=== PATIENT | female | born 1970 | race Two or more races ===

== ENCOUNTER 2018-09-09 11:07 | Day surgery (SDC) | payer OTHER ==
[2018-09-09] VITALS (13 sets, daily range): BP systolic 109–129; BP diastolic 68–83; PULSE 83–100; RESP 11–21; Ht 167.6 cm; Wt 71.9 kg
[~2018-09-09] VITALS: Ht 167.6 cm; Wt 71.9 kg
[~2018-09-09 11:07] MED LIST: SEVOFLURANE 15 MIN ONE
[2018-09-09] MEDS ORDERED: HYDR-4011 PO (11:40)
[2018-09-09] MEDS ORDERED: IBUP-1542 PO (11:41)
[2018-09-09] MEDS ORDERED: LACTATED RINGER'S 1,000 ML IV SCH (12:00)
--- NOTE | 2018-09-09 13:04 | HPN ---
Date/Time of Note Date/Time of Note DATE: 09/09/18 TIME: 13:03 Interval H&P Admission Note Pt. seen H&P reviewed: No system changes ALBA JAY MD Sep 09, 2018 13:04
[2018-09-09] MEDS ORDERED: POLYMYXIN/BACITRACIN 1L IRRIG ONE (13:14)
--- NOTE | 2018-09-09 13:48 | PREAC ---
Date/Time of Note Date/Time of Note DATE: 09/09/18 TIME: 13:47 Anesthesia Eval and Record Evaluation Time Pre-Procedure Interview DATE: 09/09/18 TIME: 13:47 Age 47 Sex female NPO: 8 hrs Preoperative diagnosis Patellar fracture Planned procedure ORIF Past Medical History Past Medical History: None Surgery & Anesthesia Issues No known issue Meds Anticoagulation: No Beta Gigi within 24 hr: No Reason Beta Gigi not given: Pt. not on B-Gigi Reported Medications Ibuprofen* (Motrin*) 600 Mg Tab, 600 MG PO Q6H PRN for PAIN, TAB 09/09/18 Hydrocodone/Acetaminophen ([place] 5-325 Tablet) 1 Each Tablet, 1 EACH PO BID PRN for PAIN, TAB 09/09/18 Current Medications Lactated Ringer's 1,000 ml @ 30 mls/hr Q24H IV ; Start 09/09/18 at 12:00 Meds reviewed: Yes Allergies Coded Allergies: No Known Allergy (Unverified , 09/09/18) Allergies Reviewed: Yes Labs/Studies Labs Reviewed: Reviewed by anesthesiologist Result Diagram: 09/09/18 1155 09/09/18 1155 Laboratory Tests 09/09/18 11:55 test: Negative Pre-procedure Exam Last vitals Vital Signs Date Temp Pulse Resp B/P (MAP) Pulse Ox O2 O2 Flow FiO2 Time Delivery Rate 09/09/18 99.1 83 16 109/75 96 Room Air 11:32 (86) Airway: Adequate mouth opening Mallampati: Mallampati I Teeth: Normal Lung: Normal Heart: Normal ASA Physical Status ASA physical status: 1 Emergency: None Planned Anesthetic General/MAC: ETT, LMA Planned Pain Management Parenteral pain med Pre-operative Attestations Prior to commencing anesthesia and surgery, the patient was re-evaluated, there was verification of: *The patient's identity *The results of appropriate recent lab work and preoperative vital signs *The above evaluation not changing prior to induction *Anesthetic plan, risk benefits, alternative and complications discussed with patient/family; questions answered; patient/family understands, accepts and wishes to proceed. RAISA CHERRY MD Sep 09, 2018 13:48
[2018-09-09] MEDS ORDERED: METOCLOPRAMIDE 10 MG INJ ONE (14:00)
[2018-09-09] MEDS ORDERED: LIDOCAINE 2% (SDV) 5 ML INJ ONE (14:00)
[2018-09-09] MEDS ORDERED: CEFAZOLIN 1 GM INJ ONE ×2 (14:00→14:02)
[2018-09-09] MEDS ORDERED: ONDANSETRON 4 MG INJ ONE (14:00)
[2018-09-09] MEDS ORDERED: PROPOFOL 20 ML ONE (14:00)
[2018-09-09] MEDS ORDERED: MEPERIDINE 100 MG INJ ONE (14:00)
[2018-09-09] MEDS ORDERED: METOCLOPRAMIDE 10 MG INJ IV PRN (15:00)
[2018-09-09] MEDS ORDERED: ONDANSETRON 4 MG INJ IV PRN (15:00)
[2018-09-09] MEDS ORDERED: DIPHENHYDRAMINE 50 MG INJ IV PRN (15:00)
[2018-09-09] MEDS ORDERED: FENTAnyl 50 MCG/ML VIAL IV PRN ×3 (15:00)
[2018-09-09] MEDS ORDERED: MEPERIDINE 25 MG INJ IV PRN (15:00)
[2018-09-09] MEDS ORDERED: HYDROmorphONE 1 MG/5 ML IV SYRINGE IV PRN ×2 (15:00)
[2018-09-09] MEDS ORDERED: OXYCODONE/ACETAMINOPHEN (5/325) TAB PO PRN (15:00)
[2018-09-09] MEDS ORDERED: MIDAZOLAM 1 MG/ML 2 ML INJ IV PRN (15:00)
--- NOTE | 2018-09-09 15:09 | OPR ---
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
[2018-09-09] MEDS: HYDROmorphONE 1 MG/5 ML IV SYRINGE IV PRN ×3 (15:34→15:45)
[2018-09-09] MEDS: OXYCODONE/ACETAMINOPHEN (5/325) TAB PO PRN ×2 (15:55→16:47)
--- NOTE | 2018-09-09 15:59 | PAC ---
Date/Time of Note Date/Time of Note DATE: 09/09/18 TIME: 15:58 Post-Anesthesia Notes Post-Anesthesia Note Last documented vital signs Vital Signs Date Temp Pulse Resp B/P (MAP) Pulse Ox O2 O2 Flow FiO2 Time Delivery Rate 09/09/18 96 12 117/78 97 Nasal 2.0 15:39 (91) Cannula 09/09/18 98.9 15:17 Activity: WNL Respiratory function: WNL Cardiovascular function: WNL Mental status: Baseline Pain reasonably controlled: Yes Hydration appropriate: Yes Nausea/Vomiting absent: Yes RAISA CHERRY MD Sep 09, 2018 15:59
--- NOTE | 2018-09-09 22:14 | OPR ---
DATE OF OPERATION: 09/09/2018 SURGEON: Kayleigh Serna MD ANESTHESIA: General. PREOPERATIVE DIAGNOSIS: Displaced comminuted left patellar fracture. POSTOPERATIVE DIAGNOSIS: Displaced comminuted left patellar fracture. PROCEDURES PERFORMED: 1. Open reduction and internal fixation of left closed displaced patella fracture using two 4.5 mm c annulated screws 48 mm in length, and 18-gauge cerclage wire. 2. Repair of quadriceps tendon expansion medially and laterally with #2 FiberWire sutures. 3. Interpretation of intraoperative fluoroscopy x-ray. ESTIMATED BLOOD LOSS: 150 mL. TOURNIQUET TIME: 40 minutes. COMPLICATIONS: None. INDICATIONS: The patient approximately 1 week status post a fall injuring the left knee. X-rays rev eal a displaced comminuted fracture of the patella. Surgery has been recommended. The patient presents for surgical intervention. Risks and complicatio ns reviewed. Complications not limited to infection, blood clot, neurovascular injury, hardware fail ure, revision surgery, or repeat surgery. The patient will be required to stay in the knee immobiliz er for the next 4 to 6 weeks. Followup evaluation and x-rays reviewed with the patient and her daugh ter. The patient is a 47-year-old otherwise healthy female who sustained a fall. DESCRIPTION OF PROCEDURE: The patient taken to the operating room. General anesthetic given with in tubation. Two grams of Kefzol given for prophylaxis. Tourniquet applied to left thigh. Left leg pr epped and draped in usual sterile manner, exsanguinated with the Esmarch bandage, and tourniquet infl ated to 300 mmHg. Anterior incision made over the tibia. The fracture was visualized. The fragment s were by 1 inch. The patellar tendon was intact. Quadriceps tendon intact. The quadrice ps tendon lateral expansion, however, was torn on both sides with a larger tear on the lateral side. The wound was copiously irrigated to remove all the hematoma. The distal third of the patella, whic h was the fracture approximated with bone reduction clamps and the K-wires where the 4 mm cannulated screw was inserted followed by a 48 mm partially threaded screws. Next, an 18 gauge cerclage wire wa s used to pass through the holes of the cannulated screws and tightening it superiorly providing a sa tisfactory reduction of the fracture both clinically and radiographically. It was also noted that th e medial and lateral quadriceps tendon expansion mechanism was torn with a defect. This was approxim ated with #2 FiberWire sutures on both sides. The knee was then placed through range of motion. Ful l flexion was achieved with no separation at the fracture site. Subcutaneous layer closed with #1 Vi cryl suture and skin closed with edvin. Intraoperative fluoroscopy was used. The images saved. C ompression bandage applied. Anesthetic reversed. The patient taken to recovery in stable condition. Dictated By: KAYLEIGH KELSEY/VAMSI Conf#: [id number] DID#: [id number]
== END 2018-09-09 17:35 | disposition home or self-care (01) ==
LOC: SDS 11:07
PROVIDERS: ATTEND Specialist
DX: S82.042D Displaced comminuted fracture of left patella, subsequent encounter for closed fracture with routine healing (principal); X58.XXXD Exposure to other specified factors, subsequent encounter
CPT/HCPCS: 27524; 73562; 80048; 84703; 85025; 85610; 85730; C1713; J0690; J1170; J2175; J2405; J2765; Z7512; Z7610